=== PATIENT | male | born 1985 | race Caucasian/White ===

== ENCOUNTER 2016-12-07 22:07 | Observation (INO) | payer OTHER ==
[~2016-12-07] VITALS: Ht 190.5 cm; Wt 112.1 kg
[2016-12-07 23:07] LABS: EOSINOPHIL (%) 0.6 % (0-5); EOSINOPHIL COUNT 0.1 K/uL (0-0.3); HEMATOCRIT 44.4 % (38.0-50.0); IMMATURE GRANULOCYTE (%) 0.6 % (0.0-0.7); IMMATURE GRANULOCYTE COUNT 0.1 K/uL; INSTRUMENT ABS NEUTROPHIL CT 11.2 K/uL; LYMPHOCYTE COUNT 1.8 K/uL (1.0-2.8); MCH 28.9 PG (29.0-34.0); MCHC 34.5 G/DL (30.0-36.0); MCV 83.8 FL (86-99); MEAN PLAT.VOLUME 9.7 uM^3 (9.0-12.4); MONOCYTE (%) 7.4 % (3-12); MONOCYTE COUNT 1.1 K/uL (0-0.8); NEUTROPHIL (%) 78.6 % (45-76); NEUTROPHIL COUNT 11.2 K/uL (1.8-6.4); PLATELET COUNT 297 K/uL (156-360); RBC DIS.WIDTH-CV 12.8 % (11.8-14.6); WHITE BLOOD COUNT 14.2 K/uL (4.1-10.2)
[2016-12-07 23:16] LABS: CHLORIDE 107 mEq/L (99-109); SODIUM 140 mEq/L (136-147)
[2016-12-07 23:17] LABS: GLUCOSE 109 mg/dL (70-99)
[2016-12-07 23:19] LABS: ANION GAP 9 MEQ/L (2-14)
[2016-12-07 23:21] LABS: GFR ESTIMATE (CALCULATED) > 59 mL/min/
[2016-12-07 23:22] LABS: UREA NITROGEN (BUN) 15 mg/dL (9-23)
[2016-12-07 23:24] LABS: CREATINE KINASE 268 IU/L (1-294)
[2016-12-07 23:46] LABS: TROP-I INTERPRETATION NEGATIVE; TROPONIN-I < 0.01 ng/mL (0.0-0.30)
[2016-12-08] MEDS ORDERED: ALPRAZOLAM1 MG PO (00:26)
[2016-12-08] MEDS ORDERED: PROTONIX40 MG PO (00:27)
[2016-12-08] MEDS ORDERED: PROZAC40 MG PO (00:27)
[2016-12-08 01:51] VITALS: BP 123/64
[2016-12-08 08:00] VITALS: BP 91/49
[2016-12-08 12:15] VITALS: BP 102/51
[2016-12-08 12:19] LABS: AMPHETAMINES QUANT VALUE 0 NG/ML; BARBITUATES QUANT VALUE 0 NG/ML; BENZODIAZEPINES QUANT VALUE 0 NG/ML; BENZODIAZEPINES, URINE SCREEN Negative (200 ng/mL); MARIJUANA QUANT VALUE 0 NG/ML; OPIATES QUANTITATIVE VALUE 0 NG/ML; PHENCYCLIDINE QUANT VALUE 0 NG/ML
[2016-12-08 16:43] VITALS: BP 127/66
[2016-12-08 21:00] VITALS: BP 139/84
== END 2016-12-08 21:22 | disposition home or self-care (01) ==
LOC: EME → EDBD 22:07 → ENPENDDIS 12-08 → EDOF 12-08 00:55 → ENRESERV 12-08 01:01 → 5WEST 12-08 01:51
PROVIDERS: Emergency Medicine; Hospitalist
DX: R56.9 Unspecified convulsions (principal); F43.21 Adjustment disorder with depressed mood; K21.9 Gastro-esophageal reflux disease without esophagitis; R51 Headache; R11.2 Nausea with vomiting, unspecified; F41.0 Panic disorder [episodic paroxysmal anxiety]; F43.0 Acute stress reaction; D72.829 Elevated white blood cell count, unspecified; Z88.2 Allergy status to sulfonamides
CPT/HCPCS: 70450; 80048; 80306 90; 82550; 84484; 85025; 93005; 95819; 99281; 99285; G0378; J1650; J1953; J2060; J7030; J7050

== ENCOUNTER 2017-11-14 20:30 | Emergency (ER) | payer OTHER ==
[~2017-11-14] VITALS: Ht 190.5 cm; Wt 109.0 kg
[~2017-11-14 20:30] MED LIST: ALPRAZOLAM1 MG PO; PROTONIX40 MG PO; PROZAC40 MG PO
[2017-11-14 22:06] VITALS: BP 143/83
== END 2017-11-14 22:10 | disposition home or self-care (01) ==
LOC: EME 20:30
DX: G40.909 Epilepsy, unspecified, not intractable, without status epilepticus (principal); K21.9 Gastro-esophageal reflux disease without esophagitis; Z88.2 Allergy status to sulfonamides
CPT/HCPCS: 99281; 99285